=== PATIENT | male | born 1985 | race American Indian/Alaskan Native ===

== ENCOUNTER 2017-04-08 01:35 | Emergency (ER) | payer OTHER ==
[2017-04-08 02:39] LABS: Basophils % (Auto) 0.8 % (0.0-1.8); Eosinophils % (Auto) 2.6 % (0.0-4.3); Hematocrit 35.8 % (35.5-45.6); Hemoglobin 12.1 gm/dl (11.8-15.2); Mean Corpuscular HGB Conc 34 % (32-34); Mean Corpuscular Hemoglobin 31 pg (28-32); Mean Corpuscular Volume 92 fl (84-94); Platelet Count 108 K/mm3 (140-440); Red Blood Count 3.89 M/mm3 (3.65-5.03); Red Cell Distribution Width 14.5 % (13.2-15.2); White Blood Count 4.7 K/mm3 (4.5-11.0)
[2017-04-08 02:40] LABS: Alanine Aminotransferase 13 units/L (7-56); Albumin 4.4 g/dL (3.9-5); Albumin/Globulin Ratio 1.4 %; Alkaline Phosphatase 57 units/L (35-129); Anion Gap 17 mmol/L; BUN/Creatinine Ratio 13; Blood Urea Nitrogen 9 mg/dL (9-20); Calcium 9.3 mg/dL (8.4-10.2); Carbon Dioxide 26 mmol/L (22-30); Chloride 102.5 mmol/L (98-107); Glucose 88 mg/dL (75-100); Potassium 3.9 mmol/L (3.6-5.0); Sodium 142 mmol/L (137-145); Total Protein 7.6 g/dL (6.3-8.2)
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
[2017-04-08] MEDS ORDERED: BOOSTRIX IM ONE (08:58)
[2017-04-08] MEDS ORDERED: MOTRIN PO ONE (08:58)
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
[2017-04-08 11:39] VITALS: BP 114/77
== END 2017-04-08 10:27 | disposition home or self-care (01) ==
LOC: ED 01:35
DX: S00.83XA Contusion of other part of head, initial encounter (principal); F17.200 Nicotine dependence, unspecified, uncomplicated; F12.10 Cannabis abuse, uncomplicated; Y08.89XA Assault by other specified means, initial encounter; Y93.89 Activity, other specified; Y99.8 Other external cause status; Y92.009 Unspecified place in unspecified non-institutional (private) residence as the place of occurrence of the external cause
CPT/HCPCS: 36415; 70450; 70486; 72125; 80053; 85025; 90471; 90715; 99284; G0480; 80320

== ENCOUNTER 2021-11-15 15:28 | Emergency (ER) | payer SELFPAY ==
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
[2021-11-15 18:47] VITALS: BP 147/87
== END 2021-11-15 18:53 | disposition home or self-care (01) ==
LOC: ED 15:28
DX: T75.89XA Other specified effects of external causes, initial encounter (principal); R53.1 Weakness; F17.200 Nicotine dependence, unspecified, uncomplicated; X30.XXXA Exposure to excessive natural heat, initial encounter; Y93.89 Activity, other specified; Y92.89 Other specified places as the place of occurrence of the external cause; Y99.8 Other external cause status
CPT/HCPCS: 99283